=== PATIENT | female | born 1965 | race Caucasian/White ===

== ENCOUNTER 2016-09-02 12:40 | Emergency (ER) | payer OTHER ==
[2016-09-02 12:46] VITALS: TEMP 98; O2SAT 100
[2016-09-02] MEDS ORDERED: Oxycodone/Acetaminophen 5/325 mg Tab PO STA (13:42)
[2016-09-02] MEDS ORDERED: Oxycodone/Acetaminophen 5/325 mg Tab ONE (13:48)
--- NOTE | 2016-09-02 13:48 | C.PDOC ---
History Of Present Illness 51 yr old female presents to the ER with complaints of right upper dental pain for the past 3 days. Patient reports she has been taking ibuprofen 600mg and Tylenol multiple times but with no significant relief. Patient also states she took a dose of antibiotics left over from prior dental problems. Also went to the dental clinic today, but was told she is unable to be seen due to a computer problem. Patient denies facial swelling, fever, chills, throat swelling, mouth swelling, neck pain, headache, weakness or numbness. Time Seen by Provider: 09/02/16 13:11 Chief Complaint (Nursing): Dental Pain History Per: Patient History/Exam Limitations: no limitations Onset/Duration Of Symptoms: Days (3) Past Medical History Reviewed: Historical Data, Nursing Documentation, Vital Signs Vital Signs: Last Vital Signs Temp 98 F 09/02/16 12:42 Pulse 82 09/02/16 14:30 Resp 20 09/02/16 14:30 BP 128/72 09/02/16 14:30 Pulse Ox 100 09/02/16 23:18 - Medical History PMH: Anxiety, Asthma, Depression, Gastritis, Migraine Surgical History: No Surg Hx Family History: States: Unknown Family Hx - Social History Hx Tobacco Use: Yes Hx Alcohol Use: Yes (ocassionally) Hx Substance Use: No - Immunization History Hx Tetanus Toxoid Vaccination: No Hx Influenza Vaccination: No Hx Pneumococcal Vaccination: No Review Of Systems Except As Marked, All Systems Reviewed And Found Negative. Constitutional: Negative for: Fever, Chills ENT: Positive for: Other (Right upper dental pain ). Negative for: Mouth Swelling, Throat Swelling Musculoskeletal: Negative for: Neck Pain Neurological: Negative for: Weakness, Numbness, Headache Physical Exam - Physical Exam Appears: Well, Non-toxic, No Acute Distress Skin: Warm, Dry, No Rash Head: Atraumatic, Normacephalic Teeth: Tender To Palpation (Right upper, most posterior tooth with erythematous surrounding gums. no fluctuance), Other (Poor dentition. Missing approx. 3 upper rear right molars ) Gingiva: Swelling (Mild swelling on the anterior gum), Other (No fluctuance ) Throat: Normal, No Erythema, No Exudate Neck: Normal, Normal ROM, Supple Lymphatic: No Adenopathy Chest: Symmetrical, No Tenderness Cardiovascular: Rhythm Regular, No Murmur Extremity: Normal ROM, No Swelling Neurological/Psych: Oriented x3, Normal Speech, Normal Motor ED Course And Treatment O2 Sat by Pulse Oximetry: 100 Medical Decision Making Medical Decision Making: PLAN: * Pen-Vee-K PO * Percocet PO * Toradol IM NOTE: pt having considerable pain even with taking tylenol and ibuprofen. Pt given one table of percocet with toradol in ed with relief of pain nj rx reviewed; pt last received rx in 02/14 for tramadol. pt has plans to return to Dental clinic tomorrow, will give rx for a few percocet for breakthrough pain. Disposition Counseled Patient/Family Regarding: Diagnosis, Need For Followup, Rx Given - Disposition Disposition: HOME/ ROUTINE Disposition Time: 14:28 Condition: IMPROVED Additional Instructions: Please follow up with your dentist tomorrow. Take ibuprofen 600 mg by mouth every 6 hours for pain (with food); Take a percocet only for severe pain. Take antibiotics as prescribed. 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 - Scribe Statement The provider has reviewed the documentation as recorded by the Scribe Barbara Orellana All medical record entries made by the Scribe were at my direction and personally dictated by me. I have reviewed the chart and agree that the record accurately reflects my personal performance of the history, physical exam, medical decision making, and the department course for this patient. I have also personally directed, reviewed, and agree with the discharge instructions and disposition.
[2016-09-02 15:34] VITALS: BP 128/72; PULSE 82; RESP 20
== END 2016-09-02 14:30 | disposition home or self-care (01) ==
LOC: C.ER 12:40
DX: K08.89 Other specified disorders of teeth and supporting structures (principal)
CPT/HCPCS: 96372; 99283; J1885

== ENCOUNTER 2016-09-28 15:25 | Emergency (ER) | payer OTHER ==
[2016-09-28 15:29] VITALS: BMI 18.3
[2016-09-28 15:33] VITALS: BP 108/69; TEMP 98.3
[2016-09-28 16:32] LABS: RBC URINE 2 /hpf (0-3); URINE BACTERIA OCC (<OCC); URINE BILIRUBIN NEGATIVE (NEGATIVE); URINE BLOOD NEGATIVE (NEGATIVE); URINE COLOR Yellow (YELLOW); URINE GLUCOSE (UA) NORMAL (Normal); URINE KETONE NEGATIVE (NEGATIVE); URINE PROTEIN NEGATIVE (NEGATIVE); URINE UROBILINOGEN NORMAL mg/dL (0.2-1.0); WBC URINE 9 /hpf (0-5)
--- NOTE | 2016-09-28 16:42 | C.PDOC ---
History Of Present Illness 51 y/o female presents to ED with complaint of brownish vaginal discharge for 2 weeks. Also reports some vaginal itching for 2 days. Notes LMP 4 years ago. Denies any vaginal bleeding. Patient notes she recently took antibiotics for a tooth infection. Reports that she is not currently sexually active. Denies fever , chills, nausea, vomiting, or other associated symptoms. Time Seen by Provider: 09/28/16 15:42 Chief Complaint (Nursing): Female Genitourinary History Per: Patient History/Exam Limitations: no limitations Onset/Duration Of Symptoms: Days Current Symptoms Are (Timing): Still Present Recent travel outside of the [place]: No Past Medical History Vital Signs: Last Vital Signs Temp 98.3 F 09/28/16 15:33 Pulse 72 09/28/16 18:17 Resp 18 09/28/16 18:17 BP 108/69 09/28/16 15:33 Pulse Ox 98 09/28/16 18:17 - Medical History PMH: Anxiety, Asthma, Depression, Gastritis, Migraine Denies: Chronic Kidney Disease Family History: States: Unknown Family Hx - Social History Hx Tobacco Use: Yes Hx Alcohol Use: Yes (ocassionally) Hx Substance Use: No - Immunization History Hx Tetanus Toxoid Vaccination: No Hx Influenza Vaccination: No Hx Pneumococcal Vaccination: No Physical Exam - Physical Exam Appears: Non-toxic, No Acute Distress Skin: Normal Color, Warm, Dry Head: Atraumatic, Normacephalic Chest: Symmetrical Cardiovascular: Rhythm Regular Respiratory: Normal Breath Sounds, No Rales, No Rhonchi, No Wheezing Gastrointestinal/Abdominal: Soft, No Tenderness, No Distention, No Guarding, No Rebound Back: Normal Inspection Pelvic: No Vaginal Bleeding, Vaginal Discharge (copious thick, white discharge) , No Cervical Motion Tenderness, No Adnexal Tenderness, Other (Physical exam chaperoned by Mary GASPAR ) Extremity: Normal ROM, Capillary Refill (< 2 sec. ) Neurological/Psych: Oriented x3, Normal Speech, Normal Cognition ED Course And Treatment O2 Sat by Pulse Oximetry: 95 (RA) Pulse Ox Interpretation: Normal Progress Note: On re-evaulation, patient is resting comfortably, and is in no acute distress. Advised follow up with [facility] as scheduled. Disposition Counseled Patient/Family Regarding: Diagnosis, Need For Followup, Rx Given - Disposition Disposition: HOME/ ROUTINE Disposition Time: 17:55 Condition: GOOD Additional Instructions: Use medications as directed. Follow up with your [facility] care facilities as scheduled. 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 - Scribe Statement The provider has reviewed the documentation as recorded by the Scribe All medical record entries made by the Scribe were at my direction and personally dictated by me. I have reviewed the chart and agree that the record accurately reflects my personal performance of the history, physical exam, medical decision making, and the department course for this patient. I have also personally directed, reviewed, and agree with the discharge instructions and disposition.
[2016-09-28 16:43] LABS: URINE LEUKOCYTE ESTERASE 1+ Leu/uL (Negative)
[2016-09-28 18:18] VITALS: PULSE 72; RESP 18
[2016-09-28 18:58] VITALS: O2SAT 95
== END 2016-09-28 18:18 | disposition home or self-care (01) ==
LOC: C.ER 15:25
DX: N76.0 Acute vaginitis (principal)

== ENCOUNTER 2016-10-22 15:36 | Emergency (ER) | payer MEDICAID, OTHER ==
[2016-10-22 15:37] VITALS: BMI 18.3
[2016-10-22 15:47] VITALS: BP 104/67; PULSE 58; RESP 17; TEMP 98.3; O2SAT 100
[2016-10-22] MEDS ORDERED: Sodium Chloride 0.9% 1,000 ML IV ONE (17:33)
--- NOTE | 2016-10-22 18:02 | CT ---
PROCEDURE: CT HEAD WITHOUT CONTRAST. HISTORY: Headaches COMPARISON: Noncontrast head CT performed 01/04/15 TECHNIQUE: Axial computed tomography images were obtained through the head/brain without intravenous contrast. Radiation dose: Total exam DLP = 899.09 mGy-cm. This CT exam was performed using one or more of the following dose reduction techniques: Automated exposure control, adjustment of the mA and/or kV according to patient size, and/or use of iterative reconstruction technique. FINDINGS: HEMORRHAGE: No intracranial hemorrhage. BRAIN: No mass effect or edema. The julio-white matter differentiation appears intact. Please note that MRI with diffusion imaging is more sensitive in the detection of acute ischemic event. VENTRICLES: No hydrocephalus. CALVARIUM: Unremarkable. PARANASAL SINUSES: Unremarkable as visualized. No significant inflammatory changes. MASTOID AIR CELLS: Unremarkable as visualized. No inflammatory changes. OTHER FINDINGS: None. IMPRESSION: No acute intracranial pathology identified.
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
== END 2016-10-22 18:43 | disposition left against medical advice (07) ==
LOC: C.ER 15:36
DX: R51 Headache (principal)

== ENCOUNTER 2017-03-30 17:57 | Emergency (ER) | payer OTHER, MEDICAID ==
[2017-03-30 17:57] VITALS: BMI 18.3
[2017-03-30 18:23] VITALS: BP 97/58; PULSE 79; RESP 16; TEMP 98.4; O2SAT 96
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
--- NOTE | 2017-03-31 08:43 | RAD ---
PROCEDURE: Radiographs of the Lumbar Spine. HISTORY: injury COMPARISON: No prior. FINDINGS: BONES: Normal alignment. No listhesis. No fracture. DISC SPACES: Unremarkable. OTHER FINDINGS: None. IMPRESSION: Unremarkable radiographs of the lumbar spine.
== END 2017-03-30 20:15 | disposition home or self-care (01) ==
LOC: C.ER 17:57
DX: S39.012A Strain of muscle, fascia and tendon of lower back, initial encounter (principal); V79.50XA Passenger on bus injured in collision with unspecified motor vehicles in traffic accident, initial encounter; Y92.488 Other paved roadways as the place of occurrence of the external cause
CPT/HCPCS: 72100; 96372; 99284; J1885

== ENCOUNTER 2017-06-12 17:01 | Emergency (ER) | payer MEDICAID, OTHER ==
[2017-06-12 17:02] VITALS: BMI 18.3
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
[2017-06-12 20:52] LABS: BASO # 0.1 K/uL (0.0-0.2); BASO % 0.9 % (0.0-2.0); EOS # 0.3 K/uL (0.0-0.7); EOS % 3.6 % (0.0-4.0); HEMOGLOBIN 14.1 g/dL (11.0-16.0); LYMPH % 41.6 % (20.0-40.0); MEAN CELL VOLUME 90.1 fL (81.0-99.0); MEAN CORPUSCULAR HEMOGLOBIN 30.1 pg (27.0-31.0); MEAN CORPUSCULAR HGB CONC 33.4 g/dL (33.0-37.0); MEAN PLATELET VOLUME 6.7 fL (7.2-11.7); MONO # 0.6 K/uL (0.0-0.8); NEUT # 3.3 K/uL (1.8-7.0); NEUT % 45.9 % (50.0-75.0); NRBC % 0.1 % (0.0-2.0); RBC 4.68 Mil/uL (3.80-5.20); WHITE BLOOD COUNT 7.3 K/uL (4.8-10.8)
[2017-06-12 20:57] LABS: SQUAMOUS EPITHIAL 1 /hpf (0-5); URINE BILIRUBIN NEGATIVE (NEGATIVE); URINE BLOOD NEGATIVE (NEGATIVE); URINE CLARITY Clear (Clear); URINE COLOR Yellow (YELLOW); URINE GLUCOSE (UA) NORMAL (Normal); URINE LEUKOCYTE ESTERASE TRACE Leu/uL (Negative); URINE NITRATE NEGATIVE (NEGATIVE); URINE PROTEIN NEGATIVE (NEGATIVE); URINE UROBILINOGEN NORMAL mg/dL (0.2-1.0)
[2017-06-12 21:05] LABS: ALB/GLOB RATIO 1.2 (1.0-2.1); ALBUMIN 4.2 g/dL (3.5-5.0); ALT/SGPT 28 U/L (9-52); AST/SGOT 27 U/L (14-36); BLOOD UREA NITROGEN 17 mg/dL (7-17); GFR AFRICAN-AMERICAN > 60; GFR NON-AFRICAN AMERICAN > 60; LIPASE 85 U/L (23-300)
[2017-06-12] MEDS ORDERED: Iohexol 300 100 ML IJ ONE (21:27)
[2017-06-12 22:38] VITALS: BP 114/74; PULSE 68; RESP 20; TEMP 97.7
--- NOTE | 2017-06-12 23:07 | CT ---
EXAM: CT Abdomen and Pelvis With Intravenous Contrast CLINICAL HISTORY: 52 years old, female; Pain; Abdominal pain; Periumbilical; Additional info: Periumbilical pain and bulging, poss hernia TECHNIQUE: Axial computed tomography images of the abdomen and pelvis with intravenous contrast. All CT scans at this facility use one or more dose reduction techniques, viz.: automated exposure control; ma/kV adjustment per patient size (including targeted exams where dose is matched to indication; i.e. head); or iterative reconstruction technique. Coronal and sagittal reformatted images were created and reviewed. CONTRAST: 100 mL of omnipaque 300 administered intravenously. COMPARISON: US - GALL BLADDER 2015-05-28 17:15 FINDINGS: Lower thorax: Minimal atelectasis/scarring. ABDOMEN: Liver: Unremarkable. No mass. Gallbladder and bile ducts: No calcified stones. No ductal dilation. Pancreas: No ductal dilation. No mass. Spleen: No splenomegaly. Adrenals: No mass. Kidneys and ureters: No mass. No hydronephrosis. Stomach and bowel: No definite mural thickening. No obstruction. Appendix: Normal caliber. No inflammation. PELVIS: Bladder: Unremarkable. Reproductive: 1.5 x 1.8 x 1.4 cm hypodense lesion within RIGHT ovary. 1.1 x 1.0 x 1.3 cm hypodense lesion within LEFT ovary. ABDOMEN and PELVIS: Intraperitoneal space: No significant fluid collection. No free air. Bones/joints: Early degenerative changes of spine. No acute fracture. Soft tissues: Unremarkable. Vasculature: Minimal atherosclerotic disease of aorta. No aneurysm. Lymph nodes: No pathologically enlarged lymph nodes. IMPRESSION: 1. Probable ovarian cysts/follicles. Consider ultrasound. 2. Incidental/non-acute findings are described above.
[2017-06-14 04:09] VITALS: O2SAT 96
== END 2017-06-12 22:38 | disposition left against medical advice (07) ==
LOC: C.ER 17:01
DX: R10.33 Periumbilical pain (principal); Z87.891 Personal history of nicotine dependence
CPT/HCPCS: 74177; 80053; 81001; 83690; 85025; 96374; 99283; J1885; Q9967

== ENCOUNTER 2017-07-14 11:33 | Emergency (ER) | payer MEDICAID ==
[2017-07-14 11:33] VITALS: BMI 18.3
[2017-07-14] MEDS ORDERED: Sodium Chloride 0.9% 1,000 ML IV ONE (12:44)
[2017-07-14 13:05] LABS: BASO % 0.9 % (0.0-2.0); EOS # 0.2 K/uL (0.0-0.7); EOS % 3.6 % (0.0-4.0); HEMOGLOBIN 13.3 g/dL (11.0-16.0); LYMPH # 2.1 K/uL (1.0-4.3); LYMPH % 38.4 % (20.0-40.0); MEAN CELL VOLUME 88.8 fL (81.0-99.0); MEAN CORPUSCULAR HEMOGLOBIN 30.1 pg (27.0-31.0); MEAN CORPUSCULAR HGB CONC 33.9 g/dL (33.0-37.0); MEAN PLATELET VOLUME 6.9 fL (7.2-11.7); MONO # 0.4 K/uL (0.0-0.8); MONO % 8.3 % (0.0-10.0); NEUT # 2.6 K/uL (1.8-7.0); NEUT % 48.8 % (50.0-75.0); RBC 4.4 Mil/uL (3.80-5.20); RED CELL DISTRIBUTION WIDTH 13.1 % (11.5-14.5); WHITE BLOOD COUNT 5.4 K/uL (4.8-10.8)
[2017-07-14 13:09] LABS: HCG,QUALITATIVE URINE NEGATIVE (NEGATIVE)
--- NOTE | 2017-07-14 13:09 | C.PDOC ---
History Of Present Illness 52 y/o female presents complaining of persistent RUQ and epigastric abdominal pain for the past 4 days. States pain is associated with moderate nausea but no vomiting or diarrhea. Patient reports history of similar symptoms several years ago, was seen in the ED and diagnosed with pancreatitis. Otherwise she denies any GI bleeding, rash, fever, chills, dysuria, back pain, chest pain, or SOB. No recent travel. Time Seen by Provider: 07/14/17 12:41 Chief Complaint (Nursing): Abdominal Pain History Per: Patient History/Exam Limitations: no limitations Onset/Duration Of Symptoms: Days (x4) Current Symptoms Are (Timing): Still Present Severity: Moderate Location Of Pain/Discomfort: RUQ, Epigastric Radiation Of Pain To:: None Associated Symptoms: Nausea Past Medical History Reviewed: Historical Data, Nursing Documentation, Vital Signs Vital Signs: Last Vital Signs Temp 98.2 F 07/14/17 15:22 Pulse 76 07/14/17 15:22 Resp 18 07/14/17 15:22 BP 123/75 07/14/17 15:22 Pulse Ox 100 07/14/17 15:39 - Medical History PMH: Anxiety, Asthma, Depression, Gastritis, Migraine, Pancreatitis Denies: Chronic Kidney Disease Family History: States: Unknown Family Hx - Social History Hx Tobacco Use: Yes Hx Alcohol Use: Yes (ocassionally) Hx Substance Use: No - Immunization History Hx Tetanus Toxoid Vaccination: No Hx Influenza Vaccination: No Hx Pneumococcal Vaccination: No Review Of Systems Except As Marked, All Systems Reviewed And Found Negative. Constitutional: Negative for: Fever, Chills Cardiovascular: Negative for: Chest Pain Respiratory: Negative for: Shortness of Breath Gastrointestinal: Positive for: Nausea, Abdominal Pain. Negative for: Vomiting , Diarrhea, Other (GI bleeding) Genitourinary: Negative for: Dysuria Musculoskeletal: Negative for: Back Pain Skin: Negative for: Rash Physical Exam - Physical Exam Appears: Non-toxic, No Acute Distress Skin: Normal Color, Warm, Dry Head: Atraumatic, Normacephalic Eye(s): bilateral: Normal Inspection, PERRL, EOMI Nose: Normal Oral Mucosa: Moist Neck: Normal ROM, Supple Chest: Symmetrical Cardiovascular: Rhythm Regular, No Murmur Respiratory: Normal Breath Sounds, No Accessory Muscle Use Gastrointestinal/Abdominal: Soft, Tenderness (Moderate RUQ tenderness), No Guarding Back: Normal Inspection, No CVA Tenderness Extremity: Bilateral: Atraumatic, Normal Color And Temperature, Normal ROM Neurological/Psych: Oriented x3, Normal Speech ED Course And Treatment - Laboratory Results Result Diagrams: 07/14/17 12:59 07/14/17 12:59 O2 Sat by Pulse Oximetry: 100 (RA) Pulse Ox Interpretation: Normal - CT Scan/US US Abdomen Other Rad Studies (CT/US): Read By Radiologist (at 14:48), Radiology Report Reviewed CT/US Interpretation: FINDINGS: LIVER: Measures 15.6 cm in length and appears unremarkable. No focal hepatic mass identified. The main portal vein appears patent with normal directional flow. No intrahepatic bile duct dilatation. GALLBLADDER: No gallstones. No gallbladder wall thickening or pericholecystic edema. Negative sonographic Yancey's sign as assessed by the supervisor slitting and shipping. COMMON BILE DUCT: Measures 4 mm. PANCREAS: Not well-visualized. RIGHT KIDNEY : Measures 10.2 x 3.7 x 4.3 cm. No obstructing calculus or hydronephrosis identified. AORTA: Limited visualization appears grossly unremarkable. IVC: Limited visualization appears grossly unremarkable. OTHER FINDINGS: None . IMPRESSION: Unremarkable right upper quadrant ultrasound as above. Medical Decision Making Medical Decision Making: Time: 12:44 Initial Plan: * Lipase * CMP * CBC * Urine HCG, qualitative * Urinalysis * IV fluids * Toradol 30 mg IVP * Morphine 2 mg IVP * Zofran 4 mg IVP * US Abdomen Limited On re-exam, the patient reports improvement of symptoms. Lungs are CTA, heart is RRR, abdomen is soft, non-tender and tolerating PO well. Ambulatory in the ED steady gait. Follow up with the medical doctor within 1-2 days. Return if worsened. Disposition - Disposition Referrals: [facility] at [facility] [Outside] Edmundo Osborn MD [Staff Provider] - Disposition: HOME/ ROUTINE Disposition Time: 15:33 Condition: GOOD Additional Instructions: Follow up with the medical doctor within 1-2 days. Return if worsened. Prescriptions: Aluminum Hydroxide/Magnesium [Maalox Plus 30 ml] 30 ml PO BID #200 udc Ibuprofen [Motrin] 1 tab PO TID PRN #30 tab PRN Reason: Pain Omeprazole 20 mg PO DAILY #20 capsule.dr Instructions: Gastritis Forms: [facility] (Italian) - Clinical Impression Clinical Impression: Abdominal pain, Nausea - PA / RESORT DESK CLERK / Resident Statement MD/DO has reviewed & agrees with the documentation as recorded. - Scribe Statement The provider has reviewed the documentation as recorded by the Scribe (Maria E Alan) All medical record entries made by the Scribe were at my direction and personally dictated by me. I have reviewed the chart and agree that the record accurately reflects my personal performance of the history, physical exam, medical decision making, and the department course for this patient. I have also personally directed, reviewed, and agree with the discharge instructions and disposition.
[2017-07-14] MEDS ORDERED: Sodium Chloride 0.9% 1,000 ML ONE (13:10)
[2017-07-14 13:12] LABS: SQUAMOUS EPITHIAL 1 /hpf (0-5); URINE BACTERIA RARE (<OCC); URINE BILIRUBIN NEGATIVE (NEGATIVE); URINE BLOOD 1+ (NEGATIVE); URINE CLARITY Clear (Clear); URINE GLUCOSE (UA) NORMAL (Normal); URINE LEUKOCYTE ESTERASE NEG Leu/uL (Negative); URINE PROTEIN NEGATIVE (NEGATIVE); URINE UROBILINOGEN NORMAL mg/dL (0.2-1.0)
[2017-07-14 13:13] LABS: URINE COLOR STRAW (YELLOW)
[2017-07-14 13:20] LABS: ALB/GLOB RATIO 1.3 (1.0-2.1); ALBUMIN 3.7 g/dL (3.5-5.0); ALT/SGPT 23 U/L (9-52); AST/SGOT 25 U/L (14-36); BLOOD UREA NITROGEN 16 mg/dL (7-17); CALCIUM 8.2 mg/dl (8.6-10.4); GFR AFRICAN-AMERICAN > 60; GFR NON-AFRICAN AMERICAN > 60; LIPASE 31 U/L (23-300)
--- NOTE | 2017-07-14 14:50 | US ---
HISTORY: RUQ/epigastric COMPARISON: CT abdomen and pelvis with IV contrast performed 06/12/17 TECHNIQUE: Sonographic evaluation of the right upper quadrant of the abdomen. FINDINGS: LIVER: Measures 15.6 cm in length and appears unremarkable. No focal hepatic mass identified. The main portal vein appears patent with normal directional flow. No intrahepatic bile duct dilatation. GALLBLADDER: No gallstones. No gallbladder wall thickening or pericholecystic edema. Negative sonographic Yancey's sign as assessed by the emery wheel worker. COMMON BILE DUCT: Measures 4 mm. PANCREAS: Not well-visualized. RIGHT KIDNEY: Measures 10.2 x 3.7 x 4.3 cm. No obstructing calculus or hydronephrosis identified. AORTA: Limited visualization appears grossly unremarkable. IVC: Limited visualization appears grossly unremarkable. OTHER FINDINGS: None . IMPRESSION: Unremarkable right upper quadrant ultrasound as above.
[2017-07-14 15:23] VITALS: BP 123/75; PULSE 76; RESP 18; TEMP 98.2
[2017-07-14 15:32] VITALS: O2SAT 100
== END 2017-07-14 15:53 | disposition home or self-care (01) ==
LOC: C.ER 11:33
DX: R10.11 Right upper quadrant pain (principal); R11.0 Nausea
CPT/HCPCS: 76705; 80053; 81001; 83690; 84703; 85025; 96361; 96374; 96375; 99284; J1885; J2270; J2405; J7040

== ENCOUNTER 2017-11-23 14:36 | Emergency (ER) | payer MEDICAID ==
[2017-11-23 14:36] VITALS: BMI 18.3
[2017-11-23 14:48] VITALS: BP 106/70; PULSE 72; RESP 16; TEMP 98; O2SAT 100
[2017-11-23] MEDS ORDERED: Naproxen 550 mg Tab PO STA (15:15)
[2017-11-23] MEDS ORDERED: Naproxen 550 mg Tab PO ONE (15:35)
--- NOTE | 2017-11-23 15:45 | RAD ---
Date of service: 11/23/2017 PROCEDURE: Right Knee Radiographs. HISTORY: pain COMPARISON: None. FINDINGS: BONES: No acute fracture. JOINTS: Unremarkable. JOINT EFFUSION: None. OTHER FINDINGS: None. IMPRESSION: No demonstrated fracture or dislocation.
--- NOTE | 2017-11-23 15:49 | C.PDOC ---
History Of Present Illness 52 year old female presents to the ED for evaluation of right knee pain which began 2 days ago. Patient notes pain to the area with weight bearing. She has been trying to exercise her knee at home without relief. Patient notes she fell onto her knee one year ago, and believes this may be contributing to her symptoms. She denies swelling, extremity weakness or change in sensation. Time Seen by Provider: 11/23/17 14:47 Chief Complaint (Nursing): Lower Extremity Problem/Injury History Per: Patient History/Exam Limitations: no limitations Onset/Duration Of Symptoms: Days (2) Current Symptoms Are (Timing): Still Present - Knee Description Of Injury: denies: Fell, Struck With Object, Struck Against Object, Twisted Past Medical History Reviewed: Historical Data, Nursing Documentation, Vital Signs Vital Signs: Last Vital Signs Temp 98 F 11/23/17 14:44 Pulse 72 11/23/17 14:44 Resp 16 11/23/17 14:44 BP 106/70 11/23/17 14:44 Pulse Ox 100 11/23/17 17:33 - Medical History PMH: Anxiety, Asthma, Depression, Gastritis, Migraine, Pancreatitis Denies: Chronic Kidney Disease Surgical History: No Surg Hx Family History: States: Unknown Family Hx - Social History Hx Tobacco Use: Yes Hx Alcohol Use: Yes (ocassionally) Hx Substance Use: No - Immunization History Hx Tetanus Toxoid Vaccination: No Hx Influenza Vaccination: No Hx Pneumococcal Vaccination: No Review Of Systems Musculoskeletal: Positive for: Other (right knee pain ) Neurological: Negative for: Weakness, Numbness Physical Exam - Physical Exam Appears: Non-toxic, No Acute Distress Skin: Normal Color, Warm, Dry Head: Atraumatic, Normacephalic Eye(s): bilateral: Normal Inspection, EOMI Nose: Normal Oral Mucosa: Moist Neck: Normal ROM, Supple Chest: Symmetrical Respiratory: No Accessory Muscle Use Extremity: Normal ROM, Tenderness (anterior aspect of right knee ), No Calf Tenderness, Capillary Refill (less than 2 seconds ), No Swelling Extremity: Right: Painful To Bear Weight, Bilateral: Normal Color And Temperature, Normal ROM Pulses: Left Dorsalis Pedis: Normal, Right Dorsalis Pedis: Normal Neurological/Psych: Oriented x3, Normal Speech, Normal Motor, Normal Sensation Gait: Steady ED Course And Treatment O2 Sat by Pulse Oximetry: 100 (on RA) Pulse Ox Interpretation: Normal - Other Rad right knee XR X-Ray: Viewed By Me, Read By Radiologist Interpretation: PROCEDURE: Right Knee Radiographs. HISTORY: pain. COMPARISON : None. FINDINGS: BONES: No acute fracture. JOINTS: Unremarkable. JOINT EFFUSION: None. OTHER FINDINGS: None. IMPRESSION: No demonstrated fracture or dislocation. Progress Note: Right knee XR ordered, results show no fracture or dislocation. Naproxen PO given. Knee brace applied by RN. On re-evaluation, patient is resting comfortably, showing no signs of distress and reports an improvement in her pain. Patient is stable for discharge and is advised to follow up with orthopedic care within 1-2 days for further evaluation. Disposition - Disposition Referrals: Richy Hernandez III, MD [Staff Provider] - Disposition: HOME/ ROUTINE Disposition Time: 15:48 Condition: STABLE Additional Instructions: Rest and ice the area. Follow up with bone doctor in 1-2 days. Prescriptions: Naproxen [Naprosyn] 1 tab PO BID PRN #20 tab PRN Reason: Pain Instructions: Knee Pain (DC) Forms: [employer] (Urdu) - Clinical Impression Clinical Impression: Knee pain, acute - PA / PEANUT CLEANER / Resident Statement MD/DO has reviewed & agrees with the documentation as recorded. - Scribe Statement The provider has reviewed the documentation as recorded by the Scribe (Jessy Sarmiento) All medical record entries made by the Scribe were at my direction and personally dictated by me. I have reviewed the chart and agree that the record accurately reflects my personal performance of the history, physical exam, medical decision making, and the department course for this patient. I have also personally directed, reviewed, and agree with the discharge instructions and disposition.
== END 2017-11-23 16:14 | disposition home or self-care (01) ==
LOC: C.ER 14:36
DX: M25.561 Pain in right knee (principal)

== ENCOUNTER 2017-12-15 12:22 | Emergency (ER) | payer MEDICAID ==
[2017-12-15 12:23] VITALS: BMI 18.3
[2017-12-15 12:33] VITALS: BP 108/64; PULSE 82; RESP 19; TEMP 97.9; O2SAT 96
[2017-12-15] MEDS ORDERED: Lidocaine 5% Patch TD STA (12:58)
[2017-12-15] MEDS ORDERED: Lidocaine 5% Patch TD ONE (13:06)
--- NOTE | 2017-12-15 13:30 | C.PDOC ---
History Of Present Illness 52 y/o female c/o bilateral lumbar pain after lifting something heavy starting yesterday. . denies bladder or bowel dysfunction. no weakness or numbness. pt took tylenol, motrin and flexeril with no improvement. no fever. Time Seen by Provider: 12/15/17 12:46 Chief Complaint (Nursing): Back Pain History Per: Patient History/Exam Limitations: no limitations Quality Of Discomfort: "Pain" Severity: Moderate Previous Symptoms: Back Pain, Neck Pain, Chronic Pain Past Medical History Reviewed: Historical Data, Nursing Documentation, Vital Signs Vital Signs: Last Vital Signs Temp 97.9 F 12/15/17 12:29 Pulse 82 12/15/17 12:29 Resp 19 12/15/17 12:29 BP 108/64 12/15/17 12:29 Pulse Ox 96 12/15/17 22:43 - Medical History PMH: Anxiety, Asthma, Depression, Gastritis, Migraine, Pancreatitis Denies: Chronic Kidney Disease Family History: States: Unknown Family Hx - Social History Hx Tobacco Use: Yes Hx Alcohol Use: Yes (ocassionally) Hx Substance Use: No - Immunization History Hx Tetanus Toxoid Vaccination: No Hx Influenza Vaccination: No Hx Pneumococcal Vaccination: No Review Of Systems Constitutional: Negative for: Fever, Chills Respiratory: Negative for: Cough, Shortness of Breath Genitourinary: Negative for: Dysuria, Frequency Musculoskeletal: Positive for: Back Pain. Negative for: Neck Pain, Shoulder Pain Skin: Negative for: Bruising Neurological: Negative for: Weakness, Numbness Physical Exam - Physical Exam Appears: Non-toxic, No Acute Distress, Other (lying on stretcher, talking on phone. ) Skin: Warm, Dry Head: Atraumatic, Normacephalic Neck: No Midline Cervical Tenderness Chest: No Deformity, No Tenderness Cardiovascular: Rhythm Regular, No Murmur Respiratory: No Decreased Breath Sounds, No Wheezing Gastrointestinal/Abdominal: Soft, No Tenderness Back: No Vertebral Tenderness, Paraspinal Tenderness Extremity: Normal ROM, No Tenderness, No Pedal Edema Pulses: Left Dorsalis Pedis: Normal, Right Dorsalis Pedis: Normal Neurological/Psych: Oriented x3, Normal Speech, Normal Cognition, Normal Motor, Normal Sensation ED Course And Treatment O2 Sat by Pulse Oximetry: 96 Medical Decision Making Medical Decision Making: pt with mild relief after medicaiton. d/c home with nsaid, flexeril and tylenol. Disposition Counseled Patient/Family Regarding: Diagnosis, Need For Followup, Rx Given - Disposition Disposition: HOME/ ROUTINE Disposition Time: 13:28 Condition: IMPROVED Additional Instructions: Please remove patch from back after 12 hours. Cold or warm compresses several times a day to lower5 back. Take medications as prescribed. Avoid heavy lifting - bend at knees when lifting. Follow up with your primary care doctor next week. Prescriptions: Acetaminophen [Tylenol 325mg tab] 650 mg PO Q6 #30 tab Cyclobenzaprine [Cyclobenzaprine HCl] 10 mg PO Q8 #9 tab Instructions: Low Back Pain in Adults, Back Exercises Forms: [facility] (French), General Discharge Instructions - Clinical Impression Clinical Impression: Low back strain
== END 2017-12-15 13:59 | disposition home or self-care (01) ==
LOC: C.ER 12:22
DX: S39.012A Strain of muscle, fascia and tendon of lower back, initial encounter (principal); X50.9XXA Other and unspecified overexertion or strenuous movements or postures, initial encounter
CPT/HCPCS: 96372; 99283; J1885

== ENCOUNTER 2018-09-25 08:26 | Emergency (ER) | payer MEDICAID ==
[2018-09-25 08:26] VITALS: BMI 18.3
[2018-09-25 08:33] VITALS: PULSE 62; RESP 20; TEMP 98.6; O2SAT 99
[2018-09-25] MEDS ORDERED: Naproxen 550 mg Tab PO STA (08:48)
--- NOTE | 2018-09-25 08:51 | C.PDOC ---
History Of Present Illness 53 year old female presents to the emergency department with complaints of right knee pain worsening over the last two weeks. Patient attributes the pain to a fall she had two years ago. Patient denies any other recent trauma. Time Seen by Provider: 09/25/18 08:39 Chief Complaint (Nursing): Lower Extremity Problem/Injury History Per: Patient History/Exam Limitations: no limitations Onset/Duration Of Symptoms: Worse Since, Other (2 weeks) - Knee Description Of Injury: Fell (2 years ago) Past Medical History Reviewed: Historical Data, Nursing Documentation, Vital Signs Vital Signs: Last Vital Signs Temp 98.6 F 09/25/18 08:31 Pulse 62 09/25/18 08:31 Resp 20 09/25/18 08:31 BP Pulse Ox 99 09/25/18 08:31 Primary Care Provider: Oscar Izaguirre - Medical History PMH: Anxiety, Asthma, Depression, Gastritis, Migraine, Pancreatitis Denies: Chronic Kidney Disease Surgical History: No Surg Hx Family History: States: No Known Family Hx - Social History Hx Tobacco Use: Yes Hx Alcohol Use: Yes (ocassionally) Hx Substance Use: No - Immunization History Hx Tetanus Toxoid Vaccination: No Hx Influenza Vaccination: No Hx Pneumococcal Vaccination: No Review Of Systems Except As Marked, All Systems Reviewed And Found Negative. Constitutional: Negative for: Fever, Chills Respiratory: Negative for: Cough, Shortness of Breath Gastrointestinal: Negative for: Nausea, Vomiting Musculoskeletal: Positive for: Leg Pain (right knee) Physical Exam - Physical Exam Appears: Non-toxic, No Acute Distress (texting on phone) Skin: Normal Color, Warm, Dry Head: Atraumatic, Normacephalic Eye(s): bilateral: Normal Inspection Neck: Normal, Supple Chest: Symmetrical, No Tenderness Extremity: Normal ROM, Tenderness (to right knee), No Pedal Edema, No Swelling (to right knee) Neurological/Psych: Oriented x3, Normal Speech, Normal Cognition ED Course And Treatment O2 Sat by Pulse Oximetry: 99 (RA) Pulse Ox Interpretation: Normal Medical Decision Making Medical Decision Making: Plan: Naproxen 550mg PO XR Right Knee xr neg as read by me . no other leg swelling no clincai concern for dvt. no erthema, normal rom. specifc point ttp over patella tendon. consider patella tendonitis. Disposition - Disposition Referrals: [facility] at [facility] [Outside] [facility] [Outside] [facility] [Outside] [facility] [place] [Outside] Disposition: HOME/ ROUTINE Disposition Time: 09:04 Condition: STABLE Additional Instructions: return to er with worsening. please see your doctor/clinic. Prescriptions: Naproxen [Naprosyn] 500 mg PO BID PRN #14 tablet PRN Reason: Pain, Mild (1-3) Instructions: Chronic Knee Pain (DC), Knee Pain (DC) Forms: [employer] (Cay[place] Islander) - Clinical Impression Clinical Impression: Knee pain - Scribe Statement The provider has reviewed the documentation as recorded by the Scribe (Marcus Callejas) Provider Attestation: All medical record entries made by the Scribe were at my direction and personally dictated by me. I have reviewed the chart and agree that the record accurately reflects my personal performance of the history, physical exam, medical decision making, and the department course for this patient. I have also personally directed, reviewed, and agree with the discharge instructions and disposition.
[2018-09-25] MEDS ORDERED: Naproxen 550 mg Tab PO ONE (09:04)
--- NOTE | 2018-09-25 11:26 | RAD ---
Date of service: 09/25/2018 PROCEDURE: Right Knee Radiographs. HISTORY: knee pain COMPARISON: None. TECHNIQUE: 2 views obtained. FINDINGS: BONES: Normal. No fracture. JOINTS: Normal. No osteoarthritis. JOINT EFFUSION: None. OTHER FINDINGS: None. IMPRESSION: Normal radiographs of the right knee.
== END 2018-09-25 09:16 | disposition home or self-care (01) ==
LOC: C.ER 08:26
DX: M25.561 Pain in right knee (principal)